=== PATIENT | female | born 1955 | race Caucasian/White ===

== ENCOUNTER → 2017-03-15 | Outpatient (CLI) | payer BC ==
--- NOTE | 2017-03-15 09:22 | RAD ---
DATE: 03/15/2017 EXAM: DIGITAL SCREEN BILAT W/CAD HISTORY: 61-year-old female presents for screening mammography COMPARISON: 01/07/2016 TECHNIQUE: Full field digital cortical and medial oblique views of both breasts are obtained. This study was interpreted with the benefit of Computerized Aided Detection (CAD). FINDINGS: The breast parenchyma shows scattered fibroglandular densities. Level B. There is focal asymmetry within the slightly lateral aspect of the left breast at mid depth approximately 7 cm from the nipple. There is stable circumscribed nodules within the bilateral upper outer quadrants due to x-ray tail lymph nodes. There is no suspicious calcification. IMPRESSION: Focal asymmetry within the slightly lateral aspect of the left breast at mid depth. Further evaluation with a full field lateral view and spot compression craniocaudal view of the left breast is recommended. Sonographic imaging can be performed if deemed indicated based on additional imaging findings. BI-RADS CATEGORY: 0 INCOMPLETE: NEEDS ADDITIONAL IMAGING EVALUATION/COMPARISON WITH PRIOR STUDIES RECOMMENDED FOLLOW-UP: ADD ADDITIONAL IMAGING Mammography is a sensitive method for finding small breast cancers, but it does not detect them all and is not a substitute for careful clinical examination. A negative mammogram does not negate a clinically suspicious finding and should not result in delay in biopsying a clinically suspicious abnormality. "Our facility is accredited by the [employer] Mammography Program."
== END | disposition home or self-care (01) ==
LOC: MAMMO 07:52
PROVIDERS: ATTEND Nurse Practitioner Family
DX: Z12.31 Encounter for screening mammogram for malignant neoplasm of breast (principal)
CPT/HCPCS: G0202; 77067

== ENCOUNTER → 2017-03-23 | Outpatient (CLI) | payer BC ==
--- NOTE | 2017-03-23 10:49 | RAD ---
DATE: 03/23/2017 EXAM: DIGITAL DIAGNOSTIC LT HISTORY: Suspicious screening study COMPARISON: 03/15/2017 This study was interpreted with the benefit of Computerized Aided Detection (CAD). The breast parenchyma shows scattered fibroglandular densities. Breast parenchyma level B. FINDINGS: On the screening study a asymmetric density was seen just lateral to the midline of the left breast only the cc view. Spot compression cc views of that region today show normal appearing fibroglandular shadows similar to those seen on prior studies. No discrete mass is identified. No suspicious density is seen on today's straight mediolateral view. The appearance on the screening study was most likely a summation shadow IMPRESSION: There is no mammographic evidence of malignancy in the left breast. BI-RADS CATEGORY: 2 BENIGN FINDING(S) RECOMMENDED FOLLOW-UP: 12M 12 MONTH FOLLOW-UP PQRS compliance statement: Patient information was entered into a reminder system with a target due date for the next mammogram. Mammography is a sensitive method for finding small breast cancers, but it does not detect them all and is not a substitute for careful clinical examination. A negative mammogram does not negate a clinically suspicious finding and should not result in delay in biopsying a clinically suspicious abnormality. "Our facility is accredited by the [employer] Mammography [employer]."
== END | disposition home or self-care (01) ==
LOC: MAMMO 09:50
PROVIDERS: ATTEND Nurse Practitioner Family
DX: R92.8 Other abnormal and inconclusive findings on diagnostic imaging of breast (principal)
CPT/HCPCS: G0206; 77065

== ENCOUNTER → 2018-07-19 | Outpatient (CLI) | payer BC ==
--- NOTE | 2018-07-20 07:49 | RAD ---
DATE: 07/19/2018 EXAM: MAMMO ELENI SCREENING BILATERAL HISTORY: Screening Mammogram COMPARISON: Mammogram 03/23/2017, 03/15/2017, 01/09/2016 This study was interpreted with the benefit of Computerized Aided Detection (CAD). The breast parenchyma shows scattered fibroglandular densities. Breast parenchyma level B. FINDINGS: Bilateral digital 2-D and 3-D tomosynthesis CC and MLO views. There is a mass in the left breast, just lateral to the posterior nipple line, posterior depth only seen on the CC view. No suspicious mass, calcination or architectural distortion in the right breast. Impression: Left breast mass seen on the CC view. Spot compression CC view, rolled CC views and full field lateral view with same-day ultrasound, if needed, is recommended. BI-RADS CATEGORY: 0 INCOMPLETE: NEEDS ADDITIONAL IMAGING EVALUATION AND/OR PRIOR MAMMOGRAMS FOR COMPARISON. RECOMMENDED FOLLOW-UP: ADD ADDITIONAL IMAGING PQRS compliance statement: Patient information was entered into a reminder system with a target due date for the next mammogram. Mammography is a sensitive method for finding small breast cancers, but it does not detect them all and is not a substitute for careful clinical examination. A negative mammogram does not negate a clinically suspicious finding and should not result in delay in biopsying a clinically suspicious abnormality. "Our facility is accredited by the [employer] Mammography Program."
== END | disposition home or self-care (01) ==
LOC: MAMMO 07:48
PROVIDERS: ATTEND Registered Nurse
DX: Z12.31 Encounter for screening mammogram for malignant neoplasm of breast (principal)
CPT/HCPCS: 77063; 77067

== ENCOUNTER → 2018-08-09 | Outpatient (CLI) | payer BC ==
--- NOTE | 2018-08-09 14:18 | RAD ---
DATE: 08/09/2018 EXAM: DIGITAL DIAGNOSTIC LT, BREAST LEFT HISTORY: Suspicious screening study COMPARISON: 07/19/2018 This study was interpreted with the benefit of Computerized Aided Detection (CAD). Breast Density: SCATTERED The breast parenchyma shows scattered fibroglandular densities. Breast parenchyma level B. FINDINGS: On the screening study a tiny smooth 4 mm nodule was identified posterolaterally on the cc view . It was best demonstrated on left CC tomosynthesis image #22, which shows that it lies inferolaterally. Today's additional rolled and spot compression views of that region could not clearly demonstrate this nodule, apparently due to other overlying fibroglandular densities. Left breast ultrasound, 08/09/2018: A targeted ultrasound exam of the inferolateral aspect of the left breast was performed. At the 4:00 location approximately 6 cm in the nipple there is a tiny anechoic structure measuring 3 x 3 x 1.5 mm and is wider than tall. The sonographic features suggest a small cyst. This probably corresponds to the mammographic finding. A mildly dilated smooth duct is noted centrally at the 5:00 location. No other abnormal fluid collection or mass was identified. IMPRESSION: Small left breast cyst. BI-RADS CATEGORY: 2 BENIGN FINDING(S) RECOMMENDED FOLLOW-UP: 12M 12 MONTH FOLLOW-UP PQRS compliance statement: Patient information was entered into a reminder system with a target due date for the next mammogram. Mammography is a sensitive method for finding small breast cancers, but it does not detect them all and is not a substitute for careful clinical examination. A negative mammogram does not negate a clinically suspicious finding and should not result in delay in biopsying a clinically suspicious abnormality. "Our facility is accredited by the [employer] Mammography Program."
== END | disposition home or self-care (01) ==
LOC: MAMMO 13:00
PROVIDERS: ATTEND Registered Nurse
DX: N60.02 Solitary cyst of left breast (principal)
CPT/HCPCS: 76641; 77065

== ENCOUNTER → 2019-07-03 | Outpatient (CLI) | payer BC ==
--- NOTE | 2019-07-03 18:37 | RAD ---
Whole body bone scan INDICATION: Right thigh pain for one and a half years. Patient also reports right wrist pain from a fall 2 weeks ago. TECHNIQUE: 3 hours post injection from 24 mCi of technetium labeled MDP radiopharmaceutical in the left antecubital fossa with a 22-gauge needle, anterior and posterior imaging of the skeletal system was performed. FINDINGS: Focal radiopharmaceutical uptake at the lateral aspect of the tip of the patient's right femoral prosthesis is evident. There is also uptake at the anterior aspect of the lower lumbar spine near the lumbosacral junction coiling with degenerative changes evident on comparison L-spine MRI, and asymmetric uptake in the left foot, likely mid foot degenerative change. At the edge of the [id number] is also noted asymmetric uptake at the right wrist, correlate with the patient's healing response from recent injury. Tiny focus of uptake at the right occiput is also noted, of doubtful clinical significance. Uptake is otherwise physiologic and unremarkable. IMPRESSION: Uptake at the proximal right femoral shaft near the tip of the patient's right hip prosthesis correlates with subtle periprosthetic lucency evident on comparison plain film with associated mild cortical remodeling on the lateral femoral shaft. Cannot exclude a loose femoral prosthesis. Correlate clinically. Electronically signed by: Kervin Kruger MD (07/03/2019 6:35 PM) [facility]
== END | disposition home or self-care (01) ==
LOC: NM 08:49
PROVIDERS: ATTEND Orthopaedic Surgery
DX: M47.817 Spondylosis without myelopathy or radiculopathy, lumbosacral region (principal); M79.659 Pain in unspecified thigh
CPT/HCPCS: 78306; A9503

== ENCOUNTER → 2019-07-06 | Outpatient (CLI) | payer BC ==
--- NOTE | 2019-07-06 10:54 | RAD ---
EXAM: Right wrist, 3 views. HISTORY: Pain. COMPARISON: None. FINDINGS: 3 views of the right wrist are obtained. There is no fracture, dislocation or subluxation. IMPRESSION: No acute osseous finding. Electronically signed by: Narcisa Ortega MD (07/06/2019 10:51 AM) [place] [id number]
== END | disposition home or self-care (01) ==
LOC: PMG 09:33
PROVIDERS: ATTEND Physician Assistant
DX: M25.531 Pain in right wrist (principal)
CPT/HCPCS: 73110

== ENCOUNTER → 2020-12-26 | Outpatient (CLI) | payer BC ==
--- NOTE | 2020-12-26 13:58 | RAD ---
MG BILAT SCREEN+ELENI 12/26/2020 8:25 AM INDICATION: Asymptomatic screening mammogram. COMPARISON: 07/19/2018, 03/15/2017 TECHNIQUE: 3D tomosynthesis was performed in CC and MLO projections. 2D views were obtained from the 3D data. CAD was utilized as needed. FINDINGS: Breast density: Category B: There are scattered areas of fibroglandular density. Right breast: There are no suspicious microcalcifications, masses or areas of architectural distortio n. Left breast: There are no suspicious microcalcifications, masses or areas of architectural distortion . Bilateral mammogram is compared to prior examinations appears unchanged. IMPRESSION: Negative bilateral mammogram. BI-RADS category: 1; Negative Recommendations: Recommend annual screening mammography in one year. Electronically signed by: Michelle Smart MD (12/26/2020 1:56 PM) [id number]
== END ==
LOC: MAMMO 08:18
PROVIDERS: ATTEND Physician Assistant
DX: Z12.31 Encounter for screening mammogram for malignant neoplasm of breast (principal)
CPT/HCPCS: 77063; 77067